=== PATIENT | female | born 1995 | race Caucasian/White ===

== ENCOUNTER 2021-12-13 08:48 | Outpatient (REF) | payer OTHER, SELFPAY ==
[2021-12-13 11:54] LABS: MANUAL DIFF FLAG NO
[2021-12-13 12:16] LABS: Basophils Percent Auto 0.3 % (0-2); Eosinophils Absolute Auto 0.2 X10*3/uL (0.0-0.4); Eosinophils Percent Auto 1.7 % (0-4); Hematocrit 40.5 % (37.0-47.0); Hemoglobin 13.3 g/dl (12.0-16.0); Imm Gran Abs Auto 0.03 X10*3/uL (0.00-0.03); Imm Gran Pct Auto 0.3 % (0.0-0.4); Lymphocytes Absolute Auto 2.7 X10*3/uL (1.2-4.9); Lymphocytes Percent Auto 24.7 % (20-40); Mean Corpuscular HGB Conc 32.8 g/dl (31.0-35.0); Mean Corpuscular Hemoglobin 28.1 pg (27.0-33.0); Mean Corpuscular Volume 85.6 fL (80.0-98.0); Mean Platelet Volume 9.7 fL (9.4-12.3); Monocytes Absolute Auto 0.6 X10*3/uL (0.1-1.2); Monocytes Percent Auto 5.2 % (2-11); Neutrophils Absolute Auto 7.4 x10*3/uL (2.0-8.3); Neutrophils Percent Auto 67.8 % (45-73); Platelet Count 337 X10*3/uL (160-400); Red Blood Count 4.73 X10*6/uL (4.20-5.50); Red Cell Distribution Width 12.9 % (11.0-16.0); White Blood Count 10.9 X10*3/uL (4.8-10.8)
[2021-12-13 12:30] LABS: Prothrombin Time 11.4 SEC (10.0-13.1)
[2021-12-13 12:50] LABS: Appearance Urine CLEAR; Color Urine YELLOW; Glucose Urine UA NEG (NEG); Leukocyte Esterase Urine NEG (NEG); Nitrite Urine NEG (NEG); Specific Gravity - Urine >= 1.030 (1.005-1.025); UACC Culture Trigger NO; Urine Blood 1+ (NEG); Urine Ketones NEG (NEG); Urine Protein NEG (NEG-TRACE)
[2021-12-13 12:50] LABS: Alanine Aminotransferase 23 U/L (0-31); Albumin Level 4.6 g/dL (3.5-5.0); Alkaline Phosphatase 46 U/L (39-117); Anion Gap 16 (12-20); Aspartate Amino Transferase 21 U/L (5-31); Bilirubin Total 0.3 mg/dL (0.0-1.0); Blood Urea Nitrogen 8 mg/dL (9-16); C Reactive Protein 2.79 mg/dL (< or = 0.50); Calcium 9.9 mg/dL (8.4-10.2); Carbon Dioxide 23 mmol/L (22-29); Chloride 107 mmol/L (96-108); Estimated Glomerular Filt Rate > 60; Glucose Random 84 mg/dL (60-115); Iron 46 mcg/dL (30-160); Percent Iron Saturation 9 % (15-50); Potassium 4.1 mmol/L (3.3-5.1); Sodium 142 mmol/L (135-145); Total Iron Binding Capacity 511 mcg/dL (228-428); Total Protein 7.8 g/dL (6.5-8.0); Unsaturated Iron Binding 465 ug/dL
[2021-12-13 13:05] LABS: Erythrocyte Sedimentation Rate 17 MM/HR (0-20)
[2021-12-13 13:08] LABS: Mucus Urine 1+ /LPF; RBC Urine 0-2 /HPF (0); Squamous Epithelial Cell Urine 1+ /LPF; WBC Urine 0-2 /HPF (0-4)
[2021-12-13 13:09] LABS: Bacteria Urine TRACE /LPF; Calcium Oxalate Crystals Urine 1+ /LPF
[2021-12-13 13:13] LABS: Ferritin 70 ng/mL (10-122); TSH reflex Free T4 2.02 uIU/mL (0.32-4.0); Vitamin D 25-OH Total 33.7 ng/mL (>30)
[2021-12-13 13:18] LABS: Folate 9.3 ng/mL (> or = 4.0); Vitamin B12 250 pg/mL (200-900)
[2021-12-13 14:18] LABS: Cortisol Random 13.9 ug/dL
[2021-12-16 07:31] LABS: HBS Num1 2.66 mIU/mL (0-7.99); HBc Num1 0.07 S/CO (0.00-0.79); Hepatitis B Core Antibody Nonreactive (Nonreactive); Hepatitis B Surface Antigen Negative (Negative); ~HepC Num1 0.04 S/CO (0.00-0.79); ~Hepatitis B Surface Antibody NONREACTIVE (Nonreactive); ~Hepatitis C Antibody Nonreactive (Nonreactive)
[2021-12-16 14:53] LABS: Immunoglobulin G Subclass 1 556 mg/dL (382-929); Immunoglobulin G Subclass 2 298 mg/dL (241-700); Immunoglobulin G Subclass 3 24 mg/dL (22-178); Immunoglobulin G Subclass 4 40.4 mg/dL (4-86); Immunoglobulin G Total 953 mg/dL (600-1640)
[2021-12-16 19:26] LABS: Lyme Abs Screen <0.90 index
[2021-12-17 07:16] LABS: Babesia IgG <1:64 titer (<1:64); Babesia IgM <1:20 titer (<1:20)
[2021-12-17 07:22] LABS: A. Phagocytophilum Ab IgG <1:64 (<1:64); A. Phagocytophilum Ab IgM <1:20 (<1:20); E. Chaffeensis Ab IgG <1:64 (<1:64); E. Chaffeensis Ab IgM <1:20 (<1:20)
[2021-12-17 08:16] LABS: Gliadin Deamidated IgA Ab <1.0 U/mL; Gliadin Deamidated IgG Ab <1.0 U/mL
[2021-12-17 11:56] LABS: Zinc 69 mcg/dL (60-130)
[2021-12-17 16:37] LABS: Cyclic Citrullinated Peptide <16 UNITS
[2021-12-17 17:17] LABS: Anti Nuclear Antibody Screen POSITIVE (NEGATIVE); Anti Nuclear Antibody Titer 1:40 titer; Histamine Plasma <1.5 ng/mL (< OR = 1.8)
[2021-12-18 08:22] LABS: Hepatitis A Antibody IgM 0.15 Index (0-0.79); ~Hepatitis A Antibody IgM Nonreactive (Nonreactive)
[2021-12-18 11:16] LABS: Transglutaminase Ab IgG <1.0 U/mL; Transglutaminase IgA <1.0 U/mL
[2021-12-18 11:57] LABS: Metanephrine, Free <25 pg/mL (<=57); Normetanephrines, Free 43 pg/mL (<=148); Total Metanephrine, Free 43 pg/mL (<=205)
[2021-12-19 11:47] LABS: Vitamin C 0.5 mg/dL (0.3-2.7)
[2021-12-19 13:32] LABS: Vitamin B6 13.6 ng/mL (2.1-21.7)
[2021-12-19 15:46] LABS: Vitamin K1 620 pg/mL (130-1500)
[2021-12-19 16:26] LABS: Nicotinamide 27 ng/mL; Vit B3 - Nicotinic Acid <20 ng/mL; Vitamin B5 (Pantothenic Acid) <40 ng/mL (<275)
[2021-12-19 17:07] LABS: Alpha-Tocopherol 15.2 mg/L (5.7-19.9); Beta-Gamma Tocopherol 1.6 mg/L (<=4.3)
[2021-12-19 17:32] LABS: Vitamin A 56 mcg/dL (38-98)
[2021-12-20 06:17] LABS: Prostaglandin D2 Random Urine 140 ng/liter
[2021-12-21 06:17] LABS: Aldolase 3.7 U/L (<=8.1); Angiotensin Converting Enzyme 24 U/L (9-67)
== END 2021-12-13 08:49 | disposition home or self-care (01) ==
LOC: HO.LAB 08:48
PROVIDERS: PCP Internal Medicine; Referring Provider Internal Medicine; Visit Provider Internal Medicine Gastroenterology
DX: R10.33 Periumbilical pain (principal); K52.839 Microscopic colitis, unspecified; R79.82 Elevated C-reactive protein (CRP); R19.7 Diarrhea, unspecified; K75.81 Nonalcoholic steatohepatitis (NASH); E66.3 Overweight; G43.909 Migraine, unspecified, not intractable, without status migrainosus; E46 Unspecified protein-calorie malnutrition; G89.29 Other chronic pain; I95.1 Orthostatic hypotension
CPT/HCPCS: 36415; 80053; 81001; 82085; 82164; 82180; 82306; 82533; 82550; 82607; 82728; 82746; 82784; 83088; 83520; 83540; 83835; 84150; 84207; 84443; 84446; 84590; 84591; 84597; 84630; 85025; 85610; 85652; 86003; 86038; 86039; 86140; 86200; 86258; 86364; 86617; 86618; 86666; 86704; 86706; 86709; 86753; 86803; 87340; 99202

== ENCOUNTER 2021-12-20 13:26 | Outpatient (REF) | payer OTHER, SELFPAY ==
[2021-12-24 10:27] LABS: Metanephrine, Free 24U 83 mcg/24 h (25-222); Normetanephrine, Free 24U 201 mcg/24 h (40-412); Total Metanephrine, Free 24U 284 mcg/24 h (94-604); Total Volume 24U 900 mL
[2021-12-26 11:46] LABS: Creatinine, 24 Hr Urine 1.82 g/24 h (0.50-2.15); Total Volume, 24 Hr Urine 900 mL
[2021-12-27 19:07] LABS: Fecal Fat Qualitative NORMAL (NORMAL)
[2021-12-27 23:32] LABS: Calprotectin, Fecal <5 mcg/g
[2021-12-28 18:12] LABS: Pancreatic Elastase-1 >500 mcg/g
[2021-12-30 17:46] LABS: Creatinine 24Hr Urine 1873 mg/24 h (603 - 1783); N-Methylhistamine, 24Hr Urine 137 mcg/g Cr (30-200); Total Volume 825 mL
== END 2021-12-20 13:27 | disposition home or self-care (01) ==
LOC: HO.LNP 13:26
PROVIDERS: Visit Provider Internal Medicine Gastroenterology
DX: I95.1 Orthostatic hypotension (principal); E66.3 Overweight; E46 Unspecified protein-calorie malnutrition; G43.909 Migraine, unspecified, not intractable, without status migrainosus; K58.9 Irritable bowel syndrome, unspecified
CPT/HCPCS: 81050; 82530; 82542; 82656; 82705; 83835; 83993

== ENCOUNTER 2021-12-20 14:23 | Outpatient (REF) | payer OTHER, SELFPAY | END 2021-12-20 14:24 | disposition home or self-care (01) | LOC: HO.LNP 14:23 | PROVIDERS: Visit Provider Internal Medicine Gastroenterology | DX: Z13.89 Encounter for screening for other disorder (principal) ==

== ENCOUNTER → 2022-01-09 08:51 | Outpatient (BNVA) | payer OTHER, SELFPAY | PROVIDERS: PCP Internal Medicine; Visit Provider Advanced Practice Midwife | DX: E28.2 Polycystic ovarian syndrome (principal); N94.10 Unspecified dyspareunia; R10.2 Pelvic and perineal pain | CPT/HCPCS: 99202 ==

== ENCOUNTER → 2022-02-14 15:59 | Outpatient (BNVA) | payer OTHER, SELFPAY | PROVIDERS: PCP Internal Medicine; Visit Provider Internal Medicine Endocrinology, Diabetes & Metabolism | DX: R79.89 Other specified abnormal findings of blood chemistry (principal) | CPT/HCPCS: 99202 ==

== ENCOUNTER 2022-03-13 16:14 | Outpatient (REF) | payer OTHER, SELFPAY ==
[2022-03-13 16:35] LABS: Appearance Urine Clear; Color Urine Dark Yellow; Glucose Urine UA Negative (Negative); Leukocyte Esterase Urine Trace (Negative); Nitrite Urine Negative (Negative); PH 7.5 (5.0-9.0); Specific Gravity - Urine >= 1.030 (1.005-1.025); UMIC TRIGGER UACC YES; Urine Blood Negative (Negative); Urine Ketones Trace mg/dL (Negative); Urine Protein Negative (Neg-Trace)
[2022-03-13 16:38] LABS: Bacteria Urine Trace (None Seen); Hyaline Casts Urine 0-2 /LPF (0-2); RBC Urine 0-2 /HPF (0-2); WBC Urine 0-5 /HPF (0-5)
[2022-03-13 16:49] LABS: Creatinine, mg/dL 184.38
[2022-03-13 17:03] LABS: Creatinine, 24Hr Urine 1.5 G/Day (1.0-2.0); Total Volume 24 Hour Urine 825 mL
[2022-03-21 14:51] LABS: Cortisol Free, 24 Hr Urine 14.2 mcg/24 h (4.0-50.0); Total Volume, 24 Hr Urine 825 mL
[2022-03-22 18:36] LABS: Saliva Cortisol <0.03 mcg/dL
[2022-03-26 09:37] LABS: Prostaglandin D2 Random Urine 252 ng/liter
== END 2022-03-13 16:15 | disposition home or self-care (01) ==
LOC: HO.LNP 16:14
PROVIDERS: Internal Medicine Gastroenterology; Visit Provider Internal Medicine Endocrinology, Diabetes & Metabolism
DX: E46 Unspecified protein-calorie malnutrition (principal); G43.909 Migraine, unspecified, not intractable, without status migrainosus; I95.1 Orthostatic hypotension; K58.9 Irritable bowel syndrome, unspecified; R79.89 Other specified abnormal findings of blood chemistry; R30.0 Dysuria
CPT/HCPCS: 81001; 82530; 82570; 84150

== ENCOUNTER → 2022-04-01 12:55 | Outpatient (BNVA) | payer OTHER, SELFPAY | PROVIDERS: PCP Internal Medicine; Referring Provider Internal Medicine; Visit Provider Internal Medicine Cardiovascular Disease | DX: R42 Dizziness and giddiness (principal); R07.89 Other chest pain | CPT/HCPCS: 93005; 99202 ==

== ENCOUNTER → 2022-05-16 09:01 | Outpatient (BNVA) | payer OTHER, SELFPAY | PROVIDERS: PCP Internal Medicine; Visit Provider Internal Medicine Gastroenterology | DX: R55 Syncope and collapse (principal); M25.50 Pain in unspecified joint; L50.9 Urticaria, unspecified; R10.9 Unspecified abdominal pain; K59.00 Constipation, unspecified; R11.2 Nausea with vomiting, unspecified | CPT/HCPCS: 99212 ==

== ENCOUNTER 2022-05-22 15:19 | Outpatient (REF) | payer OTHER, SELFPAY ==
--- NOTE | 2022-05-22 17:16 | PFT_ITS ---
FLOWS: FEV1 101% of predicted at 3.61 L. FVC 95% of predicted at 3.96 L. FEV1 to FVC ratio of 0.91. No bronchodilator response. LUNG VOLUMES: Total lung capacity 83% of predicted at 4.59 L. Residual volume 49% of predicted at 0.72 L. Slow vital capacity 95% of predicted at 3.87 L. Expiratory reserve volume 53% of predicted at 0.85 L. Diffusion capacity is normal. IMPRESSION: No obstructive or restrictive ventilatory defect. No bronchodilator response. Decreased expiratory reserve volume suggests extrathoracic restriction likely secondary to abdominal obesity. Diogenes Fontana MD AP/MODL / [id number]
== END 2022-05-22 15:20 | disposition home or self-care (01) ==
LOC: HO.RESP 15:19
PROVIDERS: PCP Internal Medicine; Visit Provider Internal Medicine
DX: J45.909 Unspecified asthma, uncomplicated (principal)
CPT/HCPCS: 94060; 94727; 94729

== ENCOUNTER → 2022-05-29 07:29 | Outpatient (BNVA) | payer OTHER, SELFPAY | PROVIDERS: PCP Internal Medicine; Visit Provider Nurse Practitioner Family | DX: M25.50 Pain in unspecified joint (principal) | CPT/HCPCS: 99202 ==

== ENCOUNTER 2022-05-29 10:26 | Outpatient (REF) | payer OTHER, SELFPAY ==
[2022-05-29 14:43] LABS: Creatinine Urine 371.87 mg/dL; Protein/Creatinine Ratio, Ur 0.09 (<0.2); Total Protein Urine Random 33 mg/dL (<12)
[2022-05-29 14:44] LABS: Erythrocyte Sedimentation Rate 16 MM/HR (0-20)
[2022-05-29 14:58] LABS: C Reactive Protein 8.62 mg/dL (< or = 0.50); Rheumatoid Factor < 13.0 IU/mL (<15.0)
[2022-05-29 16:05] LABS: MANUAL DIFF FLAG NO
[2022-05-29 16:16] LABS: Basophils Percent Auto 0.5 % (0-2); Eosinophils Absolute Auto 0.3 X10*3/uL (0.0-0.4); Eosinophils Percent Auto 4.6 % (0-4); Hematocrit 42.5 % (37.0-47.0); Imm Gran Abs Auto 0.02 X10*3/uL (0.00-0.03); Imm Gran Pct Auto 0.3 % (0.0-0.4); Lymphocytes Absolute Auto 2.3 X10*3/uL (1.2-4.9); Lymphocytes Percent Auto 35.8 % (20-40); Mean Corpuscular HGB Conc 32.9 g/dl (31.0-35.0); Mean Corpuscular Hemoglobin 27.5 pg (27.0-33.0); Mean Corpuscular Volume 83.5 fL (80.0-98.0); Mean Platelet Volume 9.8 fL (9.4-12.3); Monocytes Absolute Auto 0.5 X10*3/uL (0.1-1.2); Monocytes Percent Auto 8.3 % (2-11); Neutrophils Absolute Auto 3.3 x10*3/uL (2.0-8.3); Neutrophils Percent Auto 50.5 % (45-73); Platelet Count 297 X10*3/uL (160-400); Red Blood Count 5.09 X10*6/uL (4.20-5.50); Red Cell Distribution Width 13.5 % (11.0-16.0); White Blood Count 6.5 X10*3/uL (4.8-10.8)
[2022-05-29 16:28] LABS: Alanine Aminotransferase 48 U/L (0-31); Albumin Level 4.3 g/dL (3.5-5.0); Alkaline Phosphatase 38 U/L (39-117); Anion Gap 15 (12-20); Aspartate Amino Transferase 55 U/L (5-31); Bilirubin Total 0.5 mg/dL (0.0-1.0); Blood Urea Nitrogen 9 mg/dL (9-16); Calcium 9.3 mg/dL (8.4-10.2); Carbon Dioxide 23 mmol/L (22-29); Chloride 106 mmol/L (96-108); Estimated Glomerular Filt Rate > 60; Glucose Random 86 mg/dL (60-115); Potassium 4.2 mmol/L (3.3-5.1); Sodium 140 mmol/L (135-145); Total Protein 7.5 g/dL (6.5-8.0)
[2022-05-29 16:53] LABS: Procalcitonin 0.15 ng/mL
[2022-05-30 17:08] LABS: Complement C3 201 mg/dL (83-193)
[2022-05-30 19:37] LABS: Anti DNA DS Antibody 4 IU/mL; SM/Ribonucleoprotein Ab <1.0 NEG AI (<1.0 NEG); Smith Protein <1.0 NEG AI (<1.0 NEG)
== END 2022-05-29 10:27 | disposition home or self-care (01) ==
LOC: HO.10HDL 10:26
PROVIDERS: Visit Provider Nurse Practitioner Family
DX: M25.50 Pain in unspecified joint (principal); R79.82 Elevated C-reactive protein (CRP)
CPT/HCPCS: 36415; 80053; 84145; 84156; 85025; 85652; 86140; 86160; 86225; 86235; 86431

== ENCOUNTER 2022-05-31 08:48 | Outpatient (REF) | payer OTHER, SELFPAY ==
[2022-05-31 10:41] LABS: Alanine Aminotransferase 44 U/L (0-31); Alkaline Phosphatase 37 U/L (39-117); Anion Gap 16 (12-20); Aspartate Amino Transferase 36 U/L (5-31); Bilirubin Total 0.4 mg/dL (0.0-1.0); Blood Urea Nitrogen 12 mg/dL (9-16); C Reactive Protein 2.72 mg/dL (< or = 0.50); Calcium 9.1 mg/dL (8.4-10.2); Carbon Dioxide 22 mmol/L (22-29); Chloride 109 mmol/L (96-108); Estimated Glomerular Filt Rate > 60; Glucose Random 112 mg/dL (60-115); Sodium 143 mmol/L (135-145); Total Protein 6.7 g/dL (6.5-8.0)
[2022-05-31 11:17] LABS: Appearance Urine Clear; Color Urine Yellow; Glucose Urine UA Negative (Negative); Leukocyte Esterase Urine Trace (Negative); Nitrite Urine Negative (Negative); PH 6.5 (5.0-9.0); Specific Gravity - Urine >= 1.030 (1.005-1.025); UMIC TRIGGER UACC YES; Urine Blood Negative (Negative); Urine Ketones Trace mg/dL (Negative); Urine Protein Trace mg/dL (Neg-Trace)
[2022-05-31 11:23] LABS: Bacteria Urine 1+ (None Seen); Hyaline Casts Urine 0-2 /LPF (0-2); RBC Urine 0-2 /HPF (0-2); WBC Urine 0-5 /HPF (0-5)
== END 2022-05-31 08:49 | disposition home or self-care (01) ==
LOC: HO.LAB 08:48
PROVIDERS: PCP Internal Medicine; Visit Provider Nurse Practitioner Family
DX: R79.82 Elevated C-reactive protein (CRP) (principal)
CPT/HCPCS: 36415; 80053; 81001; 86140

== ENCOUNTER 2022-06-05 13:35 | Outpatient (REF) | payer OTHER, SELFPAY ==
[2022-06-05 15:43] LABS: Appearance Urine Cloudy; Color Urine Yellow; Glucose Urine UA Negative (Negative); Leukocyte Esterase Urine Small (1+) (Negative); Nitrite Urine Negative (Negative); Specific Gravity - Urine 1.025 (1.005-1.025); UMIC TRIGGER UACC YES; Urine Blood Negative (Negative); Urine Ketones 15 mg/dL (Negative); Urine Protein Negative (Neg-Trace)
[2022-06-05 15:46] LABS: Bacteria Urine Trace (None Seen); Hyaline Casts Urine 0-2 /LPF (0-2); RBC Urine 0-2 /HPF (0-2); UACC Culture Trigger YES
[2022-06-10 22:18] LABS: Smooth Muscle Antibody <20 U (<20)
== END 2022-06-05 13:36 | disposition home or self-care (01) ==
LOC: HO.LAB 13:35
PROVIDERS: Absent Provider Nurse Practitioner Family; PCP Internal Medicine; Referring Provider Internal Medicine; Visit Provider Internal Medicine Cardiovascular Disease
DX: M25.50 Pain in unspecified joint (principal); R79.89 Other specified abnormal findings of blood chemistry
CPT/HCPCS: 36415; 81001; 86015; 87086

== ENCOUNTER → 2022-06-13 08:57 | Outpatient (REF) | payer OTHER, SELFPAY ==
--- NOTE | 2022-06-13 09:00 | CA_ITS ---
Transthoracic Echocardiogram Patient (Last, First, Middle): Fabi Marin, Gender: Female Date of : 1995 Age: 26 Procedure Date: 06/13/2022 Procedure Type: Transthoracic Echocardiogram Location: OP Height: 167.64 cm Weight: 104.78 kg BSA: 2.13 m2 Heart Rate: bpm BP: 124 / 80 mmHg Childcare Administrator: Referring MD: Sky Bailey MD Symptoms: R42 - Dizziness and giddiness Study Quality: Fair ECG Rhythm: Sinus Conclusions: - Normal left ventricular size and systolic function. There is mildly increased left ventricular wall thickness. The visually estimated ejection fraction is between 55-60%. - Diastolic function is normal for age. - Normal right ventricular cavity size and systolic function. Findings Left Ventricle Normal left ventricular size and systolic function. There is mildly increased left ventricular wall thickness. The visually estimated ejection fraction is between 55-60%. There is no evidence of regional wall motion abnormalities. Diastolic function is normal for age. Right Ventricle Normal right ventricular cavity size and systolic function. Atria Both atria are normal in size. There is no evidence of interatrial shunt by color Doppler. Aortic Valve Normal aortic valve structure and function. There is no aortic valve stenosis. There is no aortic valve regurgitation. Mitral Valve Normal mitral valve structure and function. There is no mitral valve regurgitation. There is no mitral valve stenosis. Pulmonic Valve Normal pulmonic valve structure and function. There is trace pulmonic valve regurgitation. Tricuspid Valve Normal tricuspid valve structure. There is trace tricuspid valve regurgitation. Normal right atrial pressure. There is no evidence of pulmonary hypertension. Great Vessels All visible segments of the aorta are normal in size. The visualized portions of the pulmonary artery and branches are normal. Venous The inferior vena cava is normal in size and collapses greater than 50% with inspiration. Pericardium/Pleural There is no evidence of pericardial effusion. Measurements 2D Linear Measurements IVSd: 1.03 0.6-0.9/0.6-1.0 cm LVIDd: 4.12 3.9-5.3/4.2-5.9 cm LVIDd Index: 1.93 2.4-3.2/2.2-3.1 cm/m2 LVIDs: 2.44 2.0-3.6 cm LVPWd: 1.01 0.7-1.1 cm Ao Root: 2.60 2.1-3.5 cm LA Diam: 3.20 2.7-3.8/3.0-4.0 cm LAIDs Index: 1.50 1.5-2.3 cm/m2 LV Mass: 170.36 67-162/88-224 g LV Mass Index: 79.98 43-95/49-115 g/m2 LVOT Diam: 2.20 3.0+(-)1.3 cm 2D Systolic Function EF 4C: 61.40 >55% EF 2C: 64.60 >55% EF BiP: 62.30 >55% Mitral Valve MV Pk E: 0.91 MV PK A: 0.65 MV Decel Time: 123.00 E/A: 1.40 E'Lateral: 15.70 E'Medial: 9.68 E/E' Med: 9.40 E/E' Lat: 5.80 PHT: 36.00 MVA PHT: 6.11 Decel Edgar: 7.41 Aortic Valve AoV Pk Maximo: 1.39 AoV Mn Maximo: 0.96 AoV VTI: 0.26 AoV Pk Grad: 8.00 Aov Mn Grad: 4.00 ELLYN Cont.VTI: 2.50 LVOT LVOT Pk Maximo: 0.93 LVOT Mn Maximo: 0.66 LVOT VTI: 0.17 LVOT Pk Grad: 3.00 LVOT Mn Grad: 2.00 LVOT Diam: 2.20 LVOT Area: 3.80 Diastolic Function MV Pk E: 0.91 MV Pk A: 0.65 E/A: 1.40 E'Medial: 9.68 E/E' Med: 9.40 E' Laterial: 15.70 E/E' Lat: 5.80 Right Ventricle TAPSE (mm): 25.00 TVS' Maximo: 10.00 Tricuspid Valve TR Pk Maximo: 2.25 TR Pk Grad: 20.00 RA Press: 3.00 RVSP: 23.00 Great Vessels Aorta Ao Root-2D: 2.60 2.0-3.7 cm Ao Asc: 2.50 2.1-3.4 cm Pulmonary Valve PV Pk Maximo: 1.22 Peak PV Grad: 6.00 Updated in Other Vendor System with Status of Final Amaury Wei MD electronically signed on 06/15/2022 8:48:01 PM with status of Final
--- NOTE | 2022-06-13 09:01 | HM_ITS ---
* Total monitoring time about 2 days. * Underlying rhythm is sinus. Average ventricular rate 84/Min. Range 44 to 168/Min. * About 25% the time, rate > 100/Min. * Very rare PACs. Minimal burden. No significant pauses or AV blocks. * Symptoms in diary including dizziness, lightheadedness, feeling winded, heart racing correlate with sinus tachycardia. MTDD
== END ==
LOC: HO.CARD 08:57
PROVIDERS: Internal Medicine Gastroenterology; Nurse Practitioner Family; PCP Internal Medicine; Visit Provider Internal Medicine Cardiovascular Disease
DX: R42 Dizziness and giddiness (principal); I95.1 Orthostatic hypotension; E46 Unspecified protein-calorie malnutrition; R79.82 Elevated C-reactive protein (CRP)
CPT/HCPCS: 93225; 93306

== ENCOUNTER 2022-06-16 15:16 | Outpatient (REF) | payer OTHER, SELFPAY | END 2022-06-16 15:17 | disposition home or self-care (01) | LOC: HO.HMGCLDS 15:16 | PROVIDERS: PCP Internal Medicine; Visit Provider Internal Medicine | DX: N39.0 Urinary tract infection, site not specified (principal); J45.909 Unspecified asthma, uncomplicated | CPT/HCPCS: 87086 ==

== ENCOUNTER 2022-06-24 10:48 | Day surgery (SDC) | payer OTHER, SELFPAY ==
[2022-06-20 14:46] VITALS: BMI 36.8
--- NOTE | 2022-06-24 11:20 | P.HPSUR_ITS ---
Pre-Procedural Eval Section A Date of Service: 06/24/22 Section B Chief Complaint: Mast cell activation, Amyloidosis, unspecified Relevant Family History (Specify if Yes): No Relevant Social History: Other (specify) (thc use) Present Medications: see Short Stay Collaborative assessment Medical History: Significant History (Allergies Arthralgia Asthma Autism Dizziness Dysautonomia orthostatic hypotension syndrome Eczema IBS (irritable bowel syndrome) Malnutrition Migraines Overweight PCOS (polycystic ovarian syndrome) PTSD (post-traumatic stress disorder) Sciatica Sleep apnea) History of Previous Operations: Relevant previous surgery/procedure and date(s) (History of esophagogastroduodenoscopy (EGD) History of root canal procedure 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 mandaeism Hx of colonoscopy Hx of wisdom tooth extraction) Allergies: Allergies Allergy/AdvReac Type Severity Reaction Status Date / Time Iodinated Contrast Media AdvReac Severe projectile Verified 06/20/22 14:44 [IV Contrast Dye] vomiting Review of Systems Sugical H&P ROS: Negative: Constitution, Cardiovascular, Respiratory, Neurological, Psychiatric, Hem-Onc, Allergic/Immunologic, Gastrointestinal, Genitourinary, Musculoskeletal, Integumentary, Endocrine and Eyes/Ears/Nose/Throat Exam Surgical H&P Exam: Normal: HEENT, Normal: Heart, Normal: Lungs, Normal: Extremities, Normal: Abdomen, Normal: Skin and Normal: Neurological Plan Diagnosis/Plan: Unchanged I have reviewed the history and physical and performed a pertinent physical examination on my patient. No changes have occurred unless specified. Time Spent With Patient Time: Total time managing care of this patient today ____ minutes.
--- NOTE | 2022-06-24 11:21 | P.OP_ITS ---
Operative Note Operative Note Date of Service: 06/24/22 Narrative: Operative Information Procedure Description: EGD, Colonoscopy Indication: altered bowel habits, nausea, reflux Anesthesia: MAC FLEXIBLE TRANSORAL UPPER GASTROINTESTINAL ENDOSCOPY AND COLONOSCOPY PROCEDURE NOTE UPPER ENDOSCOPY Consent: Indications for the procedure and potential complications of bleeding, perforation, reaction to medications and missed diagnosis were discussed with the patient and informed consent was obtained. Instrument: Olympus GIF H 190 J mid size upper endoscope Monitoring: Vital signs and clinical assessment, continuous EKG monitoring, Pulse oximetry, Carbon Dioxide monitoring and blood pressure monitoring were done throughout the procedure. Procedure: The patient was placed in the left lateral decubitis position and pre-procedure medications were administered and a bite block was placed. The endoscope was inserted into the mouth and advanced under direct vision to the third part of duodenum. A careful inspection was made as the upper endoscope was withdrawn including a retroflexed examination of the proximal stomach; Findings and interventions are described below. Findings: Larynx:normal Esophagus: GE junction at 33 cm, diaphragm hiatus at 35 cm, 2 cm sliding hiatal hernia noted with incompetent LES. Bogginess and erythema at GEJ with few patches of salmon pink tissue, bx taken to r/o Barretts. Aslo schatzki ring noted. Bx taken from proximal and distal esophagus. Stomach: erosive gastritis noted in antrum Biopsies were obtained. Grade 2 flap valve on retroflexed examination of the cardia. Duodenum: Normal bulb and descending duodenum, bx taken Intervention: Biopsies as noted above COLONOSCOPY Instrument: Olympus variable stiffness pediatric scope 190L Colonoscopy Monitoring: Vital signs and clinical assessment, continuous EKG monitoring, Pulse oximetry, Carbon Dioxide monitoring and blood pressure monitoring were done throughout the procedure. Colon withdrawal time was 8 minutes. Procedure: The patient was placed in the left lateral decubitis position and pre-procedure medications were administered. After a digital rectal examination of the ano-rectum, the video colonoscope was inserted into the rectum and advanced through the colon to the cecum/TI. The colonoscope was slowly withdrawn in a retrograde panoramic fashion and the colon mucosa was carefully examined including a retroflexed view of the rectum. Findings and interventions are described below. Procedure Difficulty: easy Findings: Terminal Ileum- patchy erythema, bx taken bx taken from right colon, left colon and rectum Cecum:normal Ascending Colon: normal Transverse Colon -normal Descending Colon:normal Sigmoid Colon: normal Rectum: Retroflexion with small internal hemorrhoids, grade I Anorectum - normal Colon preparation: Bradford Bowel Preparation Scale Right colon; 3 Transverse colon: 3 Left colon; 3 (0 = Unprepared colon segment with mucosa not seen due to solid stool that cannot be cleared. 1 = Portion of mucosa of the colon segment seen, but other areas of the colon segment not well seen due to staining, residual stool and/or opaque liquid. 2 = Minor amount of residual staining, small fragments of stool and/or opaque liquid, but mucosa of colon segment seen well. 3 = Entire mucosa of colon segment seen well with no residual staining, small fragments of stool or opaque liquid) Impression and Post Procedure Diagnosis: Endoscopy Findings: incompetent LES hiatal hernia esophagitis erosive gastritis schatzki ring Colonoscopy Findings: mild iletiis internal hemorrhoids Plan: Await Pathology results Repeat Colonoscopy aged 45 or earlier if clinically indicated High fiber diet leaflet avoid straining at stool, epsom salts and sitz bath, anusol supps or cream consider PPI or can wait for bx first, if h pylori pos then treat Above findings were reviewed with the patient and relevant handouts were provided if indicated.
[2022-06-24 11:59] VITALS: BP 132/72; PULSE 89; RESP 18; TEMP 37.1; O2SAT 98
[2022-06-24 13:05] LABS: HCG Quantitative < 2 mIU/mL
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
[2022-06-24 14:22] VITALS: BP 100/56; PULSE 117; RESP 18; TEMP 36.6; O2SAT 98
[2022-06-24 14:37] VITALS: BP 120/83; PULSE 94; RESP 18; TEMP 36.1; O2SAT 100
== END 2022-06-24 15:01 | disposition home or self-care (01) ==
PROVIDERS: Anesthesiology; PCP Internal Medicine; Visit Provider Internal Medicine Gastroenterology
PROC: (CPT 45380; principal; 2022-06-24 13:00)
DX: R19.4 Change in bowel habit (principal); D89.40 Mast cell activation, unspecified; E85.9 Amyloidosis, unspecified; K52.89 Other specified noninfective gastroenteritis and colitis; K64.0 First degree hemorrhoids; K58.9 Irritable bowel syndrome, unspecified; K20.80 Other esophagitis without bleeding; K29.50 Unspecified chronic gastritis without bleeding; K22.2 Esophageal obstruction; K22.4 Dyskinesia of esophagus; K21.9 Gastro-esophageal reflux disease without esophagitis; J45.909 Unspecified asthma, uncomplicated; F84.0 Autistic disorder; E66.3 Overweight; E46 Unspecified protein-calorie malnutrition; Z68.37 Body mass index [BMI] 37.0-37.9, adult; G90.1 Familial dysautonomia [Riley-Day]; I95.1 Orthostatic hypotension; F43.10 Post-traumatic stress disorder, unspecified; L30.9 Dermatitis, unspecified; Z91.041 Radiographic dye allergy status
CPT/HCPCS: 45380; 43239; 36415; 84702; 88305; 88313; 88341; 88342; J2250

== ENCOUNTER 2022-07-01 12:09 | Outpatient (REF) | payer OTHER, SELFPAY ==
--- NOTE | ~2022-07-01 | XR_ITS ---
EXAMINATION: XR CHEST CLINICAL INFORMATION: Asthma. COMPARISON: None TECHNIQUE: 2 views of the chest were obtained. FINDINGS: Lungs grossly clear. No pleural effusions. Heart and pulmonary vessels are normal. No pneumothorax. XR/XR chest 2V IMPRESSION: No active disease.
== END 2022-07-01 12:10 | disposition home or self-care (01) ==
LOC: HO.HMGCX 12:09
PROVIDERS: PCP Internal Medicine; Visit Provider Internal Medicine
DX: J45.909 Unspecified asthma, uncomplicated (principal)
CPT/HCPCS: 71046

== ENCOUNTER → 2022-07-02 10:54 | Outpatient (BNVA) | payer OTHER, SELFPAY | PROVIDERS: PCP Internal Medicine; Visit Provider Internal Medicine Cardiovascular Disease | DX: G90.1 Familial dysautonomia [Riley-Day] (principal) | CPT/HCPCS: 99212 ==

== ENCOUNTER → 2022-07-07 08:56 | Outpatient (BNVA) | payer OTHER, SELFPAY | PROVIDERS: PCP Internal Medicine; Visit Provider Internal Medicine Gastroenterology | DX: K21.9 Gastro-esophageal reflux disease without esophagitis (principal); R19.7 Diarrhea, unspecified; R11.0 Nausea; G43.909 Migraine, unspecified, not intractable, without status migrainosus; G47.33 Obstructive sleep apnea (adult) (pediatric); D47.02 Systemic mastocytosis; F43.10 Post-traumatic stress disorder, unspecified | CPT/HCPCS: 99212 ==

== ENCOUNTER → 2022-08-26 14:26 | Outpatient (BNVA) | payer OTHER, SELFPAY | PROVIDERS: PCP Internal Medicine; Visit Provider Nurse Practitioner Family | DX: M25.50 Pain in unspecified joint (principal); G47.9 Sleep disorder, unspecified; F32.A Depression, unspecified | CPT/HCPCS: 99212 ==

== ENCOUNTER → 2022-09-01 14:45 | Outpatient (BNVA) | payer OTHER, SELFPAY | PROVIDERS: PCP Internal Medicine; Visit Provider Hospitalist | DX: J45.909 Unspecified asthma, uncomplicated (principal); J40 Bronchitis, not specified as acute or chronic; U09.9 Post COVID-19 condition, unspecified; R05.9 Cough, unspecified; R07.9 Chest pain, unspecified | CPT/HCPCS: 99202 ==

== ENCOUNTER → 2022-09-29 09:44 | Outpatient (BNVA) | payer OTHER, SELFPAY | PROVIDERS: PCP Internal Medicine; Visit Provider Internal Medicine Gastroenterology | DX: R10.9 Unspecified abdominal pain (principal); K59.00 Constipation, unspecified | CPT/HCPCS: 99212 ==

== ENCOUNTER → 2022-10-29 08:21 | Outpatient (REF) | payer OTHER, SELFPAY ==
--- NOTE | ~2022-10-29 | NM_ITS ---
EXAMINATION: RADIONUCLIDE SOLID FOOD GASTRIC EMPTYING 4-HOUR STUDY CLINICAL INFORMATION: Early satiety.. COMPARISON: None. TECHNIQUE: A standard meal consisting of 4 oz of Egg Beaters brand tagged with 769 microcuries Tc-99m Sulfur Colloid, 8 oz water and 2 slices of toast with jelly was administered orally to the patient. Images were obtained using a dual head gamma camera in the anterior and posterior projections over of the stomach immediately post ingestion and at hourly intervals up to 4 hours post ingestion. The anterior and posterior counts at each time interval were averaged using the geometric mean and expressed as percentage of the immediate post ingestion counts. FINDINGS: There is good visualization of activity in the stomach immediately post ingestion. As the study progresses, there is delayed clearance of activity from the stomach and delayed visualization of progressively increasing small bowel activity. By the end of the study, there is significant retention noted in the stomach. Retention in the stomach at each time interval was: 1 hour 91% (normal 37%-90%) 2 hours 85% (normal 30%-60%) 3 hours 72% 4 hours 64% (normal 0%-10%) NM/WI gastric emptying study IMPRESSION: Abnormal delayed (grade 4) 4 hour gastric emptying study. (For solid meal, rapid gastric emptying is less than 30% at 60 minutes. Delayed gastric emptying criteria is more than 60% remaining at 120 minutes or more than 10% at 240 minutes. The 4-hour value is the best discriminator of a normal or abnormal result). Gastric emptying study grading per JNMT Consensus Recommendations in 2008 (https://tech.snmjournals.org/content/36/1/44) Grade 1 (mild retention): 11-20% at 4h Grade 2 (moderate retention): 21-35% at 4h Grade 3 (severe retention): 36-50% at 4h Grade 4 (very severe retention): >50% retention at 4h
== END ==
LOC: HO.NUCMED 08:21
PROVIDERS: PCP Internal Medicine; Visit Provider Internal Medicine Gastroenterology
DX: R68.81 Early satiety (principal)
CPT/HCPCS: 78264; A9541

== ENCOUNTER → 2022-11-07 10:52 | Outpatient (BNVA) | payer OTHER, SELFPAY | PROVIDERS: PCP Internal Medicine; Visit Provider Hospitalist | DX: R05.9 Cough, unspecified (principal); J40 Bronchitis, not specified as acute or chronic; R07.9 Chest pain, unspecified; J45.909 Unspecified asthma, uncomplicated; U09.9 Post COVID-19 condition, unspecified; K76.9 Liver disease, unspecified | CPT/HCPCS: 99212 ==

== ENCOUNTER 2022-12-16 11:43 | Outpatient (AMB) | payer OTHER, SELFPAY ==
[2022-12-16 12:19] VITALS: BP 104/70; PULSE 96; O2SAT 97; BMI 37.4
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
== END 2022-12-16 13:08 | disposition home or self-care (01) ==
PROVIDERS: Visit Provider Internal Medicine
DX: M25.50 Pain in unspecified joint (principal); G43.909 Migraine, unspecified, not intractable, without status migrainosus; G90.1 Familial dysautonomia [Riley-Day]; K31.84 Gastroparesis; Z00.00 Encounter for general adult medical examination without abnormal findings
CPT/HCPCS: 99395

== ENCOUNTER 2022-12-30 10:57 | Outpatient (AMB) | payer OTHER, SELFPAY ==
[2022-12-30 11:04] VITALS: BP 112/64; PULSE 94; BMI 37.6
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
[2022-12-30 11:16] VITALS: BP 115/66; PULSE 75
[2022-12-30 11:17] VITALS: BP 119/71; BP 122/76; PULSE 102; PULSE 91
== END 2022-12-30 11:31 | disposition home or self-care (01) ==
PROVIDERS: PCP Internal Medicine; Referring Provider Internal Medicine; Visit Provider Internal Medicine Cardiovascular Disease
DX: G90.1 Familial dysautonomia [Riley-Day] (principal)
CPT/HCPCS: 99213

== ENCOUNTER → 2022-12-30 10:57 | Outpatient (BNVA) | payer OTHER, SELFPAY | PROVIDERS: PCP Internal Medicine; Referring Provider Internal Medicine; Visit Provider Internal Medicine Cardiovascular Disease | DX: G90.1 Familial dysautonomia [Riley-Day] (principal) | CPT/HCPCS: 99212 ==

== ENCOUNTER → 2023-01-22 13:56 | Outpatient (BNVA) | payer OTHER, SELFPAY | PROVIDERS: PCP Internal Medicine; Referring Provider Internal Medicine; Visit Provider Internal Medicine Cardiovascular Disease ==

== ENCOUNTER 2023-01-26 09:57 | Outpatient (AMB) | payer OTHER, SELFPAY ==
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
[2023-01-26 10:23] VITALS: BP 109/81; PULSE 114; BMI 36.6
== END 2023-01-26 13:24 | disposition home or self-care (01) ==
PROVIDERS: PCP Internal Medicine; Visit Provider Internal Medicine Gastroenterology
DX: K75.81 Nonalcoholic steatohepatitis (NASH) (principal); K31.84 Gastroparesis
CPT/HCPCS: 99214

== ENCOUNTER → 2023-01-26 09:57 | Outpatient (BNVA) | payer OTHER, SELFPAY | PROVIDERS: PCP Internal Medicine; Visit Provider Internal Medicine Gastroenterology | DX: K75.81 Nonalcoholic steatohepatitis (NASH) (principal); K31.84 Gastroparesis | CPT/HCPCS: 99212 ==

== ENCOUNTER 2023-02-02 12:10 | Outpatient (AMB) | payer OTHER, SELFPAY ==
[2023-02-02 12:31] VITALS: BMI 37.0
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
[2023-02-05 21:23] VITALS: BMI 37.0
== END 2023-02-02 13:11 | disposition home or self-care (01) ==
PROVIDERS: PCP Internal Medicine; Visit Provider Dietitian, Registered
DX: K31.84 Gastroparesis (principal)

== ENCOUNTER → 2023-02-02 12:10 | Outpatient (BNVA) | payer OTHER, SELFPAY | PROVIDERS: PCP Internal Medicine; Visit Provider Dietitian, Registered | DX: K31.84 Gastroparesis (principal) | CPT/HCPCS: 97802 ==

== ENCOUNTER 2023-02-27 09:37 | Outpatient (REF) | payer OTHER, SELFPAY ==
--- NOTE | ~2023-02-27 | US_ITS ---
EXAMINATION: US ABDOMEN LIMITED WITH LIVER ELASTOGRAPHY CLINICAL INFORMATION: Nonalcoholic steatohepatitis. COMPARISON: None available. TECHNIQUE: Real-time imaging of the abdominal viscera. Noninvasive ultrasound liver fibrosis assessment is performed using Linda ElastPQ point quantification shear wave elastography (2D-SWE) with a C5-2 MHz transducer. Multiple elastography samples are obtained. FINDINGS: PANCREAS: Limited. The visualized pancreatic head and body are normal in appearance. The remainder of the pancreas is obscured from visualization by the overlying bowel gas. LIVER: The liver demonstrates normal size, contour and echogenicity. No focal lesion or intrahepatic biliary duct dilatation. Within the right hepatic lobe, a 1.1 x 0.8 x 1.0 cm and 1.1 x 0.9 x 1.0 cm hypoechoic foci are seen, without associated color Doppler flow. Within the left hepatic lobe, a 1.4 x 1.1 x 1.6 cm hypoechoic collection is seen, without associated color Doppler flow. The right lobe measures 17.8 cm in length. The left lobe measures 9.4 cm in length. Portal flow is towards the liver (hepatopetal). Shear wave liver elastography median stiffness is 1.30 m/s (reference: normal median stiffness is 1.3 m/s or less). IQR/median stiffness to assess sampling precision is 0.16 (reference: good quality data set is IQR/median stiffness of 0.15 or less). GALLBLADDER: Normal. The gallbladder is physiologically distended without evidence of stones, sludge, polyps, wall thickening or pericholecystic fluid. COMMON BILE DUCT: Normal in caliber measuring 0.3 cm in diameter. RIGHT KIDNEY: Normal. No hydronephrosis. No renal calculi or focal parenchymal lesions. The kidney measures 13.0 cm in maximum dimension. FREE FLUID: None. US/US abdomen maza w elastography IMPRESSION: 1. There is generalized increase in hepatic echotexture, consistent with fatty infiltration or hepatocellular disease. Please correlate clinically. No intrahepatic biliary dilatation is seen. 2. There are 3 indeterminate hypoechoic foci seen within the liver, consistent with complex cysts versus solid lesions. These could be further evaluated with CT or MRI (hepatic mass protocol), if clinically indicated. 3. There is mild hepatomegaly. 4. Liver elastography: Although measurements suggest a high probability of normal liver stiffness, there is statistical variability of the sampling which decreases accuracy. REFERENCE: Society of Radiologists in Ultrasound Liver Stiffness Thresholds (2020): LIVER STIFFNESS THRESHOLDS: *Liver Stiffness equal or less than 1.3 m/s: High probability of being normal. *Liver Stiffness less than 1.7 m/s: In the absence of other known clinical signs, rules out compensated advanced chronic liver disease. *Liver Stiffness 1.7-2.1 m/s: Suggestive of compensated advanced chronic liver disease but need further test for confirmation. *Liver Stiffness over 2.1 m/s: Rules in compensated advanced chronic liver disease. *Liver Stiffness over 2.4 m/s: Suggestive of clinically significant portal hypertension. QUALITY OF DATA SET: *IQR/Median value equal or less than 0.15 implies a quality data set. *IQR/Median value over 0.15 implies a poor quality data set. SIGNIFICANT CHANGE FROM PRIOR EXAM: Significant change if liver stiffness measurement is 10% or greater from prior exam. OTHER CONSIDERATIONS: The stage of liver fibrosis may be overestimated in the setting of acute hepatitis, liver inflammation, elevated liver function tests, hepatic vascular congestion, obstructive cholestasis, non-fasting state, and infiltrative diseases such as amyloidosis and lymphoma. In some patients with NAFLD, the liver stiffness thresholds for compensated advanced chronic liver disease may be lower. In causes other than viral hepatitis and NAFLD, liver stiffness thresholds are not well established.
== END 2023-02-27 09:38 | disposition home or self-care (01) ==
LOC: HO.US 09:37
PROVIDERS: PCP Internal Medicine; Visit Provider Internal Medicine Gastroenterology
DX: K75.81 Nonalcoholic steatohepatitis (NASH) (principal); K31.84 Gastroparesis
CPT/HCPCS: 76705; 76981

== ENCOUNTER 2023-03-23 08:50 | Outpatient (AMB) | payer OTHER, SELFPAY ==
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
== END 2023-03-23 09:32 | disposition home or self-care (01) ==
PROVIDERS: PCP Internal Medicine; Visit Provider Dietitian, Registered
DX: K31.84 Gastroparesis (principal)

== ENCOUNTER → 2023-03-23 08:50 | Outpatient (BNVA) | payer OTHER, SELFPAY | PROVIDERS: PCP Internal Medicine; Visit Provider Dietitian, Registered | DX: K31.84 Gastroparesis (principal) | CPT/HCPCS: 97803 ==

== ENCOUNTER 2023-06-30 09:56 | Outpatient (AMB) | payer OTHER, SELFPAY ==
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
[2023-06-30 10:09] VITALS: PULSE 92; O2SAT 99; BMI 34.5
== END 2023-06-30 10:28 | disposition home or self-care (01) ==
PROVIDERS: PCP Internal Medicine; Visit Provider Hospitalist
DX: R05.3 Chronic cough (principal); J45.40 Moderate persistent asthma, uncomplicated; U09.9 Post COVID-19 condition, unspecified; K76.9 Liver disease, unspecified; G47.33 Obstructive sleep apnea (adult) (pediatric)
CPT/HCPCS: 99214

== ENCOUNTER → 2023-06-30 09:56 | Outpatient (BNVA) | payer OTHER, SELFPAY | PROVIDERS: PCP Internal Medicine; Visit Provider Hospitalist | DX: J45.40 Moderate persistent asthma, uncomplicated (principal); R05.3 Chronic cough; U09.9 Post COVID-19 condition, unspecified; K76.9 Liver disease, unspecified; G47.33 Obstructive sleep apnea (adult) (pediatric) | CPT/HCPCS: 99212 ==

== ENCOUNTER 2023-07-07 12:18 | Outpatient (AMB) | payer OTHER, SELFPAY ==
[2023-07-07 12:51] VITALS: BP 113/71; PULSE 84; BMI 33.8
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
[2023-07-07 13:05] VITALS: BP 119/74; PULSE 66
[2023-07-07 13:06] VITALS: BP 119/78; PULSE 105
== END 2023-07-07 13:19 | disposition home or self-care (01) ==
PROVIDERS: PCP Internal Medicine; Visit Provider Internal Medicine Cardiovascular Disease
DX: G90.1 Familial dysautonomia [Riley-Day] (principal)
CPT/HCPCS: 99213

== ENCOUNTER → 2023-07-07 12:18 | Outpatient (BNVA) | payer OTHER, SELFPAY | PROVIDERS: PCP Internal Medicine; Visit Provider Internal Medicine Cardiovascular Disease | DX: G90.1 Familial dysautonomia [Riley-Day] (principal) | CPT/HCPCS: 99212 ==

== ENCOUNTER 2023-07-27 10:44 | Outpatient (AMB) | payer OTHER, SELFPAY ==
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
== END 2023-07-27 14:13 | disposition home or self-care (01) ==
LOC: HO.HGI 10:44
PROVIDERS: PCP Internal Medicine; Visit Provider Internal Medicine Gastroenterology
DX: K75.81 Nonalcoholic steatohepatitis (NASH) (principal)
CPT/HCPCS: 99213

== ENCOUNTER → 2023-07-27 10:44 | Outpatient (BNVA) | payer OTHER, SELFPAY | PROVIDERS: PCP Internal Medicine; Visit Provider Internal Medicine Gastroenterology ==

== ENCOUNTER 2023-08-26 07:39 | Outpatient (REF) | payer OTHER, SELFPAY ==
--- NOTE | ~2023-08-26 | US_ITS ---
EXAMINATION: US ABDOMEN LIMITED WITH LIVER ELASTOGRAPHY CLINICAL INFORMATION: Nonalcoholic steatohepatitis; indeterminate hepatic lesions. COMPARISON: None available. TECHNIQUE: Real-time imaging of the abdominal viscera. Noninvasive ultrasound liver fibrosis assessment is performed using Linda ElastPQ point quantification shear wave elastography (2D-SWE) with a C5-2 MHz transducer. Multiple elastography samples are obtained. FINDINGS: PANCREAS: Normal. The visualized pancreatic head and body are normal in appearance. The remainder of the pancreas is obscured from visualization by the overlying bowel gas. LIVER: The liver demonstrates normal size, contour and generally increased echogenicity. No intrahepatic biliary duct dilatation. Within the right hepatic lobe, 1.2 x 0.7 x 1.1 cm and 0.9 x 1.0 x 0.9 cm lesions are seen. Previously, these measured 1.1 x 0.8 x 1.0 cm and 1.1 x 0.9 x 1.0 cm. Also seen within the right hepatic lobe, there is a 2.1 x 1.2 x 1.5 cm hypoechoic lesion. Within the left hepatic lobe, a 1.7 x 1.5 x 1.6 cm hypoechoic lesion is seen. On the comparison ultrasound examination, this measured 1.4 x 1.1 x 1.6 cm. These lesions are each partially circumscribed, without significant change in through sound transmission or associated color Doppler flow. The right lobe measures 15.3 cm in length. The left lobe measures 8.4 cm in length. Portal flow is towards the liver (hepatopetal). Shear wave liver elastography median stiffness is 1.31 m/s (reference: normal median stiffness is 1.3 m/s or less). IQR/median stiffness to assess sampling precision is 0.08 (reference: good quality data set is IQR/median stiffness of 0.15 or less). GALLBLADDER: Normal. The gallbladder is physiologically distended without evidence of stones, sludge, polyps, wall thickening or pericholecystic fluid. COMMON BILE DUCT: Normal in caliber measuring 0.6 cm in diameter. RIGHT KIDNEY: Normal. No hydronephrosis. No renal calculi or focal parenchymal lesions. The kidney measures 12.6 cm in maximum dimension. FREE FLUID: None. US/US abdomen maza w elastography IMPRESSION: 1. Low-attenuation, indeterminate hepatic lesions are redemonstrated. Some, in particular one within the left lobe, have increased in size from prior, and a further new nodule is seen within the right hepatic lobe. Again, these can be further characterized with CT or MRI (hepatic mass protocol), if clinically indicated. 2. There is generalized increase in hepatic echotexture, consistent with fatty infiltration or hepatocellular disease. Please correlate clinically. No focal hepatic mass or intrahepatic biliary dilatation is seen. 3. Liver elastography: In the absence of other known clinical signs, measurements rule out compensated advanced chronic liver disease. If there are known clinical signs, further testing may be needed for confirmation. REFERENCE: Society of Radiologists in Ultrasound Liver Stiffness Thresholds (2020): LIVER STIFFNESS THRESHOLDS: *Liver Stiffness equal or less than 1.3 m/s: High probability of being normal. *Liver Stiffness less than 1.7 m/s: In the absence of other known clinical signs, rules out compensated advanced chronic liver disease. *Liver Stiffness 1.7-2.1 m/s: Suggestive of compensated advanced chronic liver disease but need further test for confirmation. *Liver Stiffness over 2.1 m/s: Rules in compensated advanced chronic liver disease. *Liver Stiffness over 2.4 m/s: Suggestive of clinically significant portal hypertension. QUALITY OF DATA SET: *IQR/Median value equal or less than 0.15 implies a quality data set. *IQR/Median value over 0.15 implies a poor quality data set. SIGNIFICANT CHANGE FROM PRIOR EXAM: Significant change if liver stiffness measurement is 10% or greater from prior exam. OTHER CONSIDERATIONS: The stage of liver fibrosis may be overestimated in the setting of acute hepatitis, liver inflammation, elevated liver function tests, hepatic vascular congestion, obstructive cholestasis, non-fasting state, and infiltrative diseases such as amyloidosis and lymphoma. In some patients with NAFLD, the liver stiffness thresholds for compensated advanced chronic liver disease may be lower. In causes other than viral hepatitis and NAFLD, liver stiffness thresholds are not well established.
== END 2023-08-26 07:40 | disposition home or self-care (01) ==
LOC: HO.US 07:39
PROVIDERS: PCP Internal Medicine; Visit Provider Internal Medicine Gastroenterology
DX: K75.81 Nonalcoholic steatohepatitis (NASH) (principal)
CPT/HCPCS: 76705; 76981

== ENCOUNTER 2023-12-03 13:54 | Outpatient (AMB) | payer OTHER, SELFPAY ==
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
[2023-12-03 13:56] VITALS: BP 108/62; PULSE 90; BMI 33.8
[2023-12-03 14:04] VITALS: BP 114/71; PULSE 95
[2023-12-03 14:06] VITALS: BP 126/68; PULSE 118
== END 2023-12-03 14:23 | disposition home or self-care (01) ==
PROVIDERS: PCP Internal Medicine; Visit Provider Internal Medicine Cardiovascular Disease
DX: G90.1 Familial dysautonomia [Riley-Day] (principal)
CPT/HCPCS: 99213

== ENCOUNTER → 2023-12-03 13:54 | Outpatient (BNVA) | payer OTHER, SELFPAY | PROVIDERS: PCP Internal Medicine; Visit Provider Internal Medicine Cardiovascular Disease | DX: G90.1 Familial dysautonomia [Riley-Day] (principal) | CPT/HCPCS: 99212 ==

== ENCOUNTER 2024-10-17 09:52 | Outpatient (AMB) | payer OTHER, SELFPAY ==
[2024-10-17 10:10] VITALS: BP 110/68; PULSE 93; RESP 18; TEMP 36.8; O2SAT 98; BMI 36.8
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
--- OUTSIDE RECORDS SUMMARY | 2024-10-17 10:42 | XMS_ITS | Clinical Summary ---
Author Organization [facility] Address [address] [place] [address] Care Team Providers Care Shop Steward Name Role Phone Unavailable Primary Care Provider Unavailabl e Social History Tobacco Use Types Packs/Day Years Used Date Smoking Tobacco: Never Assessed Comments Unknown Sex and Gender Information Value Date Recorded Sex Assigned at Not on file Legal Sex Female 9:56 AM EDT Gender Identity Not on file Sexual Orientation Not on file Plan of Treatment Health Maintenance Due Date Last Done Comments Hepatitis C Screening 1996 Pap Smear 2012 DTaP/Tdap/Td (1 - Tdap) 2014 Hep B (1 of 3 - 19+ 3-dose series) 11/16/2015 COVID-19 Vaccine ( - 2023-2 5 season) 2024 Influenza (Season Ended) 2025 Zoster (Shingrix) (1 of 2) 2046 HPV Vaccine Aged Out No longer eligi ble based on patient's age to complete this topic Hep A Aged Out No longer eligi ble based on patient's age to complete this topic Hib Aged Out No longer eligi ble based on patient's age to complete this topic Meningococcal ACWY Aged Out No longer eligible based on patient's age to complete this topic Pneumococcal Aged Out No longer eligi ble based on patient's age to complete this topic
== END 2024-10-17 11:15 | disposition home or self-care (01) ==
LOC: HO.HMCC 09:53
PROVIDERS: PCP Internal Medicine; Visit Provider Internal Medicine
DX: J45.40 Moderate persistent asthma, uncomplicated (principal); G90.1 Familial dysautonomia [Riley-Day]; E55.9 Vitamin D deficiency, unspecified; F41.9 Anxiety disorder, unspecified; F32.A Depression, unspecified

== ENCOUNTER → 2024-10-17 09:52 | Outpatient (BNVA) | payer OTHER, SELFPAY | PROVIDERS: PCP Internal Medicine; Visit Provider Internal Medicine | DX: J45.40 Moderate persistent asthma, uncomplicated (principal); G90.1 Familial dysautonomia [Riley-Day]; E55.9 Vitamin D deficiency, unspecified; F41.9 Anxiety disorder, unspecified; F32.A Depression, unspecified; Z79.899 Other long term (current) drug therapy; Z13.31 Encounter for screening for depression; Z13.30 Encounter for screening examination for mental health and behavioral disorders, unspecified | CPT/HCPCS: 96127 ==